=== PATIENT | female | born 1975 | race Caucasian/White ===

== ENCOUNTER → 2020-01-08 16:45 | Outpatient (CLI) | payer OTHER, SELFPAY ==
--- NOTE | ~2020-01-08 | XR_ITS ---
EXAMINATION: XR wrist RT min 3V DATE: 01/08/2020 17:17 INDICATION: Right wrist pain TECHNIQUE: Posteroanterior, ulnar deviation, oblique, and lateral views of the right wrist were obtai emily. COMPARISON: none FINDINGS: Alignment is normal. No fracture. Joint spaces are normal. Soft tissue swelling radial to the radial styloid process region of the first dorsal compartment suggestive of de Quervain's tenosynovitis. IMPRESSION: 1. Soft tissue swelling at the radial aspect of the wrist. Correlate clinically for findings of de Qu ervain's tenosynovitis. No osseous abnormality. Reviewed, dictated and finalized at location . ANALYSIS TECHNICIAN IMPRESSION: 1. Soft tissue swelling at the radial aspect of the wrist. Correlate clinically for findings of de Quervain's tenosynovitis. No osseous abnormality.
== END ==
PROVIDERS: PCP Family Medicine; Visit Provider Physician Assistant
DX: M25.531 Pain in right wrist (principal); M79.89 Other specified soft tissue disorders
CPT/HCPCS: 73110

== ENCOUNTER → 2021-06-04 12:58 | Outpatient (CLI) | payer OTHER, SELFPAY ==
--- NOTE | ~2021-06-04 | MM_ITS ---
EXAMINATION: MM screening patricia BI w loki HISTORY: Screening mammogram TECHNIQUE: Craniocaudal and mediolateral oblique 3-D tomosynthesis images were obtained and synthetic 2-D images were generated. CAD analysis was submitted and interpreted. COMPARISON: No prior mammogram is available for comparison at this institution. BREAST PARENCHYMAL COMPOSITION: The breasts are heterogeneously dense, which may obscure small masses . FINDINGS: There is no evidence of suspicious mass, calcification, or architectural distortion to sugg est malignancy in either breast. IMPRESSION: 1. No mammographic evidence of malignancy. 2. Recommend routine screening mammography in one year. BI-RADS Category 1: Negative Reviewed, dictated and finalized at location A.
== END ==
PROVIDERS: Visit Provider Nurse Practitioner Obstetrics & Gynecology
DX: Z12.31 Encounter for screening mammogram for malignant neoplasm of breast (principal)
CPT/HCPCS: 77063; 77067

== ENCOUNTER 2022-05-11 08:17 | Day surgery (SDC) | payer OTHER, SELFPAY ==
[2022-04-27 14:46] VITALS: BMI 25.8
--- NOTE | 2022-05-08 14:54 | PM.HPGS ---
History of Present Illness History of Present Illness Consent: Risks, benefits, and alternatives have been discussed and questions answered. Patient agrees to proceed with procedure. Chief complaint: Neoplam Screening Narrative: Joellen Bergman is a 47 year old female referred for colon cancer screening. Review of Systems Review of Systems: All systems reviewed & are unremarkable except as noted in HPI and below PMFSH Past Medical History Medical History Allergic rhinitis Asthma Depression Factor V Leiden mutation Generalized anxiety disorder Hypertension Migraines Surgical History Surgical History H/O section 2007 History of ankle surgery ligament repair 2001 History of appendectomy 2010 History of back surgery 1994 History of carpal tunnel release right 10/2013 History of sinus surgery 1982 Family History Family History Grandparent Hypertension Cerebrovascular accident Father Family history of elevated blood lipids Cerebrovascular accident Social History Social History Smoking status: Never smoker Second hand tobacco smoke exposure: No Alcohol intake: current Alcohol use details: social occasionally Substance use: never Lack of Transportation: No Lack of Food: Never True Current Housing: I Have Housing Concerned About Future Housing: No Difficulty Paying Gas/Electric Bills: No Difficulty Paying for Meds: No Currently Unemployed: No Education: Master's Degree or Higher Difficulty w/ Childcare or Family Care: No Living arrangements: with family Occupation/Education: occupation Gender identity (if verbalized by the patient): Female Spiritual care concerns: No Meds Home Medications and Allergies Home Medications Medication Instructions Recorded Confirmed Type aspirin 81 mg tablet 81 mg PO DAILY 04/27/22 05/11/22 History multivit with minerals-iron 18 1 tablet PO DAILY 04/27/22 05/11/22 History mg-folic ac 400 mcg-vit K 25 mcg tablet (Adults Multivitamin) propranolol 40 mg tablet 40 mg PO DAILY 04/27/22 05/11/22 History vitamin B complex (B 1 tablet PO DAILY 04/27/22 05/11/22 History Complex-Vitamin B12 tablet) meloxicam 15 mg tablet 15 mg PO DAILY #30 tabs 05/05/22 05/11/22 Rx Allergies Allergy/AdvReac Type Severity Reaction Status Date / Time latex Allergy Unknown Rash Verified 05/11/22 09:24 Penicillins Allergy Unknown Unknown Verified 05/11/22 09:24 Exam Resp: Auscultation: clear to auscultation bilaterally Cardio: Rate: regular rate Rhythm: regular rhythm GI: GI Palp: Yes Soft to palpation and No Tenderness to palpation present (GI) Assessment and Plan Assessment and plan (1) Colon cancer screening: Code(s): Z12.11 - Encounter for screening for malignant neoplasm of colon Status: Acute Assessment and Plan: Colonoscopy with possible biopsy or polypectomy or cautery or injection of substances.
--- NOTE | 2022-05-11 07:50 | WPDANESEPPF ---
Anes - Initial Pre Proc Eval Procedure: Operation Date: 05/11/22 10:30 Proposed Procedures p Screening Colonoscopy - Saeid Martin MD Date/Time: 05/11/22 07:50 Surgeon: Saedi Martin MD Pre Op Diagnosis: Neoplam Screening Patient Data Age: 47 Gender: F Height: 1.68 m Weight: 72.7 kg Allergies Allergy/AdvReac Type Severity Reaction Status Date / Time latex Allergy Unknown Rash Verified 05/11/22 09:24 Penicillins Allergy Unknown Unknown Verified 05/11/22 09:24 Home Medications Medication Instructions Recorded Confirmed Type aspirin 81 mg tablet 81 mg PO DAILY 04/27/22 05/11/22 History multivit with minerals-iron 18 1 tablet PO DAILY 04/27/22 05/11/22 History mg-folic ac 400 mcg-vit K 25 mcg tablet (Adults Multivitamin) propranolol 40 mg tablet 40 mg PO DAILY 04/27/22 05/11/22 History vitamin B complex (B 1 tablet PO DAILY 04/27/22 05/11/22 History Complex-Vitamin B12 tablet) meloxicam 15 mg tablet 15 mg PO DAILY #30 tabs 05/05/22 05/11/22 Rx Patient hx anesthesia problems: none Family hx anesthesia problems: none Results Review: All pre-operative results and documents have been reviewed as part of the pre-operative evaluation. [facility] Past Medical History Medical History (Updated 05/08/22 @ 14:54 by Saeid Martin MD) Allergic rhinitis Asthma Depression Factor V Leiden mutation Generalized anxiety disorder Hypertension Migraines Surgical History Surgical History (Updated 05/05/22 @ 20:13 by DEVENDRA Cortez) H/O section 2007 History of ankle surgery ligament repair 2001 History of appendectomy 2010 History of back surgery 1994 History of carpal tunnel release right 10/2013 History of sinus surgery 1982 Family History Family History Grandparent Hypertension Cerebrovascular accident Father Family history of elevated blood lipids Cerebrovascular accident Social History Social History (Updated 05/05/22 @ 17:16 by Katherin Byrne MA) Smoking status: Never smoker Second hand tobacco smoke exposure: No Alcohol intake: current Alcohol use details: social occasionally Substance use: never Lack of Transportation: No Lack of Food: Never True Current Housing: I Have Housing Concerned About Future Housing: No Difficulty Paying Gas/Electric Bills: No Difficulty Paying for Meds: No Currently Unemployed: No Education: Master's Degree or Higher Difficulty w/ Childcare or Family Care: No Living arrangements: with family Occupation/Education: occupation Gender identity (if verbalized by the patient): Female Spiritual care concerns: No Anes - Eval Final PreProcedure Day of Procedure 05/11/22 07:50 Patient weight: overweight Heart: regular rate and rhythm Lungs: clear to auscultation Airway: Mallampati scale class II Neurological: alert and oriented Last oral intake: >/= 8 hours ASA classification: III Emergent: no Anesthetic plan: proceed Anesthesia type and monitoring: general GIVS and standard monitoring Results Review: All pre-operative results and documents have been reviewed as part of the pre-operative evaluation. Informed Consent: The patient's anesthetic plan and its attendant risks and benefits were discussed with the patient/family/POA. Questions were solicited and answers provided to the satisfaction of the patient/family/POA.
[2022-05-11 09:00] VITALS: BP 138/96; PULSE 68; RESP 20; TEMP 37.2; O2SAT 100
[2022-05-11] MEDS: LACTATED RINGERS 1,000 ML 150 ML IV CONT (09:29)
[2022-05-11 10:52] VITALS: BP 128/85; PULSE 63; RESP 16; O2SAT 100
[2022-05-11 11:02] VITALS: BP 122/86; PULSE 63; RESP 16; O2SAT 99
[2022-05-11 11:12] VITALS: BP 122/82; PULSE 66; RESP 18; O2SAT 100
--- NOTE | 2022-05-11 12:05 | WPDANESPN ---
Anes - Prog Note Post-Op Date/Time: 05/11/22 12:05 Cardiovascular status: normal Respiratory status: normal Airway patency: baseline Mental status: baseline Post-Op hydration status: normal Vital Signs: Last Vital Signs Temp 37.2 C 05/11/22 09:00 Pulse 66 05/11/22 11:12 Resp 18 05/11/22 11:12 BP 122/82 05/11/22 11:12 Pulse Ox 100 05/11/22 11:12 O2 Del Method Room Air 05/11/22 11:12 Pain Score (VAS): 0 I/O: Intake & Output 05/10/22 05/11/22 05/11/22 23:59 07:59 15:59 Intake Total 760 Balance 760 Post-procedural complaints: none Patient Feedback: Patient satisfied with anesthetic care. Other Findings: Patient vital signs back to baseline. Patient denies nausea and vomiting. Patient's pain under control. Patient OK for discharge.
== END 2022-05-11 11:40 | disposition home or self-care (01) ==
PROVIDERS: PCP Family Medicine; Visit Provider Internal Medicine Gastroenterology
PROC: 0DJD8ZZ Inspection of Lower Intestinal Tract, Via Natural or Artificial Opening Endoscopic (ICD-10-PCS; CPT 45378; principal; 2022-05-11 10:30)
DX: Z12.11 Encounter for screening for malignant neoplasm of colon (principal)
CPT/HCPCS: 45378

== ENCOUNTER → 2022-11-04 16:19 | Outpatient (CLI) | payer OTHER, SELFPAY ==
--- NOTE | ~2022-11-04 | MM_ITS ---
EXAMINATION: MM screening patricia BI w loki HISTORY: Screening mammogram TECHNIQUE: Craniocaudal and mediolateral oblique 3-D tomosynthesis images were obtained and synthetic 2-D images were generated. CAD analysis was submitted and interpreted. COMPARISON: June 04, 2021 bilateral screening mammogram BREAST PARENCHYMAL COMPOSITION: The breasts are heterogeneously dense, which may obscure small masses . FINDINGS: There is no evidence of suspicious mass, calcification, or architectural distortion to sugg est malignancy in either breast. There has been no suspicious interval change. IMPRESSION: 1. No mammographic evidence of malignancy. 2. Recommend routine screening mammography in one year. BI-RADS Category 1: Negative Reviewed, dictated and finalized at location A.
== END ==
PROVIDERS: PCP Advanced Practice Midwife; Visit Provider Advanced Practice Midwife
DX: Z12.31 Encounter for screening mammogram for malignant neoplasm of breast (principal)
CPT/HCPCS: 77063; 77067

== ENCOUNTER 2024-01-04 15:37 | Outpatient (CLI) | payer OTHER, SELFPAY ==
--- NOTE | ~2024-01-04 | MM_ITS ---
EXAMINATION: MM screening patricia BI w loki HISTORY: Screening mammogram TECHNIQUE: Craniocaudal and mediolateral oblique 3-D tomosynthesis images were obtained and synthetic 2-D images were generated. CAD analysis was submitted and interpreted. COMPARISON: 11/04/2022, 06/04/2021 BREAST PARENCHYMAL COMPOSITION:Not Dense. There are scattered areas of fibroglandular density. FINDINGS: No suspicious mass, calcification, or architectural distortion are identified in either ruben ast to suggest malignancy. There has been no suspicious interval change. IMPRESSION: No mammographic evidence of malignancy. Recommend routine screening mammography in one year. BI-RADS Category 1: Negative Reviewed, dictated and finalized at location . STERED MIDWIFE
== END 2024-01-04 15:38 | disposition home or self-care (01) ==
PROVIDERS: PCP Family Medicine; Visit Provider Obstetrics & Gynecology
DX: Z12.31 Encounter for screening mammogram for malignant neoplasm of breast (principal)
CPT/HCPCS: 77063; 77067